=== PATIENT | female | born 1965 | race Caucasian/White ===

== ENCOUNTER 2017-11-16 00:04 | Emergency (ER) | payer BC ==
[2017-11-16] VITALS (10 sets, daily range): BP systolic 118–161; BP diastolic 70–87; PULSE 103–135; RESP 18–30; TEMP 97.4; O2SAT 98–100
[2017-11-16] MEDS ORDERED: MORPHINE SULFATE 4 MG/ML INJ IV PUSH ONE (00:45)
[2017-11-16] MEDS ORDERED: ONDANSETRON HCL 4 MG/2 ML VIAL IV PUSH ONE (00:45)
--- NOTE | 2017-11-16 00:47 | PD ---
HPI Chief Complaint: Injury Time Seen by Provider: 00:32 Travel History International Travel<30 days: No Contact w/Intl Traveler<30days: No Traveled to known affect area: No History of Present Illness HPI This is a 51-year-old female who presents for evaluation of left wrist pain. Prior to arrival she fell on her outstretched left hand. She has pain in her left wrist, throbbing, worse with movement. She denies any other injuries and she has no other complaints at this time. [facility] Social History Alcohol Use: Yes Tobacco Use: No Allergies-Medications (Allergen,Severity, Reaction): Coded Allergies: No Known Allergies (Unverified , 11/16/17) Reported Meds & Prescriptions Reported Meds & Active Scripts Active Hydrocodone-Acetaminophen 5-325 mg Tab 1 Tab PO Q6H PRN Review of Systems Musculoskeletal: Positive: Limited ROM, Pain Skin: Positive Other (Denies open wounds) Physical Exam Narrative GENERAL: Well-developed well-nourished female no acute distress SKIN: Warm and dry. No open wounds HEAD: Atraumatic. Normocephalic. EYES: Pupils equal and round. No scleral icterus. No injection or drainage. ENT: No nasal bleeding or discharge. Mucous membranes pink and moist. NECK: Trachea midline. No JVD. CARDIOVASCULAR: Regular rate and rhythm. No murmur appreciated. RESPIRATORY: No accessory muscle use. Clear to auscultation. Breath sounds equal bilaterally. MUSCULOSKELETAL: Left wrist soft tissue swelling noted. There is limited supination, pronation, flexion and extension of the left wrist. Capillary refill less than 2 seconds all digits left hand. 2+ radial pulse. The patient did have jewelry on her left wrist and 2 rings on her left fourth finger which were removed with the use of lubrication. NEUROLOGICAL: Awake and alert. No obvious cranial nerve deficits. Motor grossly within normal limits. Normal speech. Data Data Last Documented VS Vital Signs Date Time Temp Pulse Resp B/P (MAP) Pulse Ox O2 Delivery O2 Flow Rate FiO2 11/16/17 01:00 100 2.00 11/16/17 00:23 97.4 103 18 118/74 (89) Orders Orders Morphine Inj (Morphine Inj) (11/16/17 00:45) Ondansetron Inj (Zofran Inj) (11/16/17 00:45) Iv Access Insert/Monitor (11/16/17 00:42) Wrist, Complete ([id number]) (11/16/17 ) Splint Or Brace Apply/Monitor (11/16/17 00:49) Propofol 200 Mg/20 Ml Inj (Diprivan 200 (11/16/17 01:00) Ketamine Inj (Ketalar Inj) (11/16/17 01:23) Wrist, Limited (Ap&Lat) (11/16/17 ) Fiberglass Sugartong Sp Ad Arm (11/16/17 ) Sling Cradle Arm (11/16/17 ) Radiology Film Requests (11/16/17 ) Ed Discharge Order (11/16/17 02:29) MDM Medical Decision Making Medical Screen Exam Complete: Yes Emergency Medical Condition: Yes Medical Record Reviewed: Yes Differential Diagnosis Left wrist fracture, sprain, dislocation Narrative Course The patient will be given morphine and Zofran. X-ray of left wrist will be obtained. X-ray reveals CONCLUSION: Comminuted Colles' fracture with significant dorsal displacement. Procedural sedation will be used for closed reduction. Sugar tong splint was applied. Postreduction x-ray reveals CONCLUSION: Partial realignment of the fracture fragments status post reduction. The patient will be discharged to follow-up when she returns to [facility] in 2 days for orthopedic follow-up. Her x-ray imaging will be placed on a CD. Procedures Procedure Narrative Closed reduction left wrist fracture: After anesthesia was achieved the fracture was reduced using traction and countertraction. Sugar tong splint was applied. Postreduction 2+ radial pulse, capillary refill less than 2 seconds all digits left hand. Patient tolerated procedure well. Diagnosis Primary Impression: Left wrist fracture Referrals: Orthopedist Additional Instructions: Follow-up with an orthopedist in the next week. Do not remove the splint. Pain medication as needed. Do not drive or drink alcohol and taking this medication. Med/Other Pt SpecificInfo: Prescription(s) given, Orthopedic Instructions Scripts Hydrocodone-Acetaminophen (Hydrocodone-Acetaminophen) 5-325 mg Tab 1 TAB PO Q6H Y for PAIN, #15 TAB 0 Refills Prov: Manny Vásquez MD 11/16/17 Disposition: 01 DISCHARGE HOME Condition: Stable Tariq Ortiz Nov 16, 2017 00:47
[2017-11-16] MEDS ORDERED: PROPOFOL 200 MG/20 ML AMP IV ONE (01:00)
--- NOTE | 2017-11-16 01:04 | RADRPT ---
EXAM DATE/TIME: 11/16/2017 00:46 [facility] COMPARISON: No previous studies available for comparison. INDICATIONS : Left wrist pain post fall today MEDICAL HISTORY : None. SURGICAL HISTORY : None. ENCOUNTER: Initial ACUITY: 1 day PAIN SCORE: 10/10 LOCATION: Left entire wrist FINDINGS: There is a comminuted fracture of the distal metaphysis of the radius with posterior displacement of the distal fracture fragment and the rest with the epiphyseal fragment. There is also a fracture of the ulnar styloid. The carpus appears grossly intact. No radiopaque foreign bodies. CONCLUSION: Comminuted Colles' fracture with significant dorsal displacement. Jose Funez MD on November 16, 2017 at 1:00 Board Certified Radiologist. This report was verified electronically.
[2017-11-16] MEDS ORDERED: KETAMINE HCL 500 MG/10 ML VIAL OTHER STA (01:23)
--- NOTE | 2017-11-16 02:07 | RADRPT ---
EXAM DATE/TIME: 11/16/2017 01:34 [facility] COMPARISON: No previous studies available for comparison. INDICATIONS : Post reduction of left wrist fracture. MEDICAL HISTORY : None. SURGICAL HISTORY : None. ENCOUNTER: Subsequent ACUITY: 1 day PAIN SCORE: 10/10 LOCATION: Left wrist FINDINGS: 2 views of the left wrist performed in a fiberglass splint after reduction. There is improved alignm ent of the distal radius fracture with some persistent lateral displacement of the radial styloid fra gment. The ulnar styloid fracture fragment is also laterally displaced. CONCLUSION: Partial realignment of the fracture fragments status post reduction. Jose Funez MD on November 16, 2017 at 2:04 Board Certified Radiologist. This report was verified electronically.
[2017-11-16] MEDS ORDERED: HYDR-3516 PO (02:22)
--- NOTE | 2017-11-16 02:29 | PD ---
Physical Exam Date Seen by Provider: Nov 16, 2017 Time Seen by Provider: 01:20 Narrative I was called to do conscious sedation for this patient who was distal Colles' fracture on the left I gave her 30 of propofol after she received 4 morphine patient did not seem to be sedated at all I did another 30 of propofol patient took 60 of propofol without any signs of sedation whatsoever she is wide awake I decided instead of going higher and will switch to ketamine we give her 50 mg IV of ketamine and she is now in a dissociative state where we are able to reduce her wrist without any pain reaction from the patient tolerates the procedure wrist reduction is successful she is put in a sugar tong and discharged she never desatted she never became hypotensive Natanael Sanchez was 1 class medical class was 1 preprocedural airway eval and security tech was in the room BVM was ready patient never had any signs of desaturation never signs of hypotension tolerated procedure without any complications Data Data Last Documented VS Vital Signs Date Time Temp Pulse Resp B/P (MAP) Pulse Ox O2 Delivery O2 Flow Rate FiO2 11/16/17 01:00 100 2.00 11/16/17 00:23 97.4 103 18 118/74 (89) Orders Orders Morphine Inj (Morphine Inj) (11/16/17 00:45) Ondansetron Inj (Zofran Inj) (11/16/17 00:45) Iv Access Insert/Monitor (11/16/17 00:42) Wrist, Complete ([id number]) (11/16/17 ) Splint Or Brace Apply/Monitor (11/16/17 00:49) Propofol 200 Mg/20 Ml Inj (Diprivan 200 (11/16/17 01:00) Ketamine Inj (Ketalar Inj) (11/16/17 01:23) Wrist, Limited (Ap&Lat) (11/16/17 ) Fiberglass Sugartong Sp Ad Arm (11/16/17 ) Sling Cradle Arm (11/16/17 ) MDM Medical Record Reviewed: Yes Supervised Visit with JOELLE: Yes Scripts Hydrocodone-Acetaminophen (Hydrocodone-Acetaminophen) 5-325 mg Tab 1 TAB PO Q6H Y for PAIN, #15 TAB 0 Refills Prov: Manny Vásquez MD 11/16/17 Manny Vásquez MD Nov 16, 2017 02:29
== END 2017-11-16 03:03 | disposition home or self-care (01) ==
LOC: NEPD 00:04
DX: S52.532A Colles' fracture of left radius, initial encounter for closed fracture (principal); W19.XXXA Unspecified fall, initial encounter
CPT/HCPCS: 25605; 73100; 73110; 96374; 96375; 99152; 99284; J2270; J2405